=== PATIENT | female | born 1970 | race Caucasian/White ===

== ENCOUNTER 2024-04-02 06:43 | Emergency (ER) | payer BC ==
[~2024-04-02] VITALS: Ht 160 cm; Wt 109.9 kg
[~2024-04-02 06:43] MED LIST: FLUT16SP2 BOTHNARES; METH4TAB3 PO
[2024-04-02] MEDS: fluorescein sod 1mg ophthalmic strip RIGHTEYE ONE (08:01)
[2024-04-02] MEDS: TETRACAINE 0.5% 4 ML OPHTHALMIC DROPS RIGHTEYE ONE (08:01)
[2024-04-02] MEDS ORDERED: CIPR2.5D21 RIGHTEYE (09:28)
[2024-04-02 09:49] VITALS: BP 152/84; PULSE 72; RESP 14; TEMP 98.7; O2SAT 96
== END 2024-04-02 09:53 | disposition home or self-care (01) ==
LOC: ER 06:43
DX: H10.31 Unspecified acute conjunctivitis, right eye (principal); Z79.2 Long term (current) use of antibiotics; Z79.899 Other long term (current) drug therapy
CPT/HCPCS: 99283; J3490